=== PATIENT | male | born 1990 | race Caucasian/White ===

== ENCOUNTER 2021-09-02 07:48 | Emergency (ER) | payer SELFPAY ==
[~2021-09-02] VITALS: Ht 170 cm; Wt 75.0 kg
[2021-09-02] MEDS ORDERED: LACTATED RINGERS 1,000 ML IV ONE (08:15)
--- NOTE | 2021-09-02 08:15 | ED Syncope ---
General Stated Complaint: COVID +;SEIZURES Source of Information: Patient Exam Limitations: No Limitations History of Present Illness Date Seen by Provider: Sep 02, 2021 Time Seen by Provider: 07:56 Initial Comments Patient ER by private conveyance with his father and chief complaint that this morning while in the bathroom he felt very hot/sweaty and and passed out. He thought maybe he had a seizure. He does not have a history of epilepsy. He says this is happened before whenever he gets sick. He has been symptomatic with a cough sometimes productive of sputum a little bit of fever upset stomach since Thursday of the previous week, 12 days ago. He did at home Covid test which was positive. He does not have any significant medical history does not follow with a doctor and denies any pain. He says he struck his face on the right side of his nose and forehead and has a little bit of discomfort sometimes in his left upper abdomen. No diarrhea or constipation. Allergies and Home Medications Allergies Coded Allergies: No Known Drug Allergies (Unverified , 09/02/21) Patient Home Medication List Home Medication List Reviewed: Yes Review of Systems Constitutional: No chills, No diaphoresis EENTM: No ear discharge, No ear pain Respiratory: cough, phlegm; No short of breath, No wheezing Cardiovascular: No chest pain, No edema Gastrointestinal: No abdominal pain, No constipation, No diarrhea; loss of appetite, nausea; No vomiting Genitourinary: No decreased output, No discharge Musculoskeletal: No back pain, No joint pain Skin: No pruritus, No rash All Other Systems Reviewed Negative Unless Noted: Yes Past Evojyif-Iualcj-Jbrvxd Hx Patient Social History Tobacco Use?: No Use of E-Cig and/or Vaping dev: No Substance use?: No Alcohol Use?: No Physical Exam Vital Signs Vital Signs - First Documented 09/02/21 07:55 Temp 36.8 Pulse 87 Resp 20 B/P (MAP) 120/82 (95) Pulse Ox 95 Capillary Refill : Height, Weight, BMI Height: '" Weight: lbs. oz. kg; BMI Method: General Appearance: No Apparent Distress, WD/WN HEENT: PERRL/EOMI; No Moist Mucous Membranes; TM Abnormal (L) (Mucoid effusion without erythema or injection nor loss of anatomic landmarks.) Neck: Full Range of Motion, Normal Inspection Cardiovascular: Regular Rate, Rhythm, No Edema, Normal Peripheral Pulses Respiratory: Lungs Clear, Normal Breath Sounds, No Accessory Muscle Use, No Respiratory Distress (98 to 99% on room air, nonlabored) Gastrointestinal: Normal Bowel Sounds, No Organomegaly, Non Tender, Soft Neurologic/Psychiatric: Alert, Oriented x3 Cranial Nerves: Normal Hearing, Normal Speech, PERRL Coordination/Gait: Normal Gait Motor/Sensory: No Motor Deficit, No Sensory Deficit Skin: Normal Color, Warm/Dry Progress/Results/Core Measures Results/Orders Lab Results Laboratory Tests Test 09/02/21 08:30 Range/Units White Blood Count 6.1 4.3-11.0 10^3/uL Red Blood Count 5.05 4.30-5.52 10^6/uL Hemoglobin 15.8 13.3-17.7 g/dL Hematocrit 46 40-54 % Mean Corpuscular Volume 92 80-99 fL Mean Corpuscular Hemoglobin 31 25-34 pg Mean Corpuscular Hemoglobin Concent 34 32-36 g/dL Red Cell Distribution Width 12.1 10.0-14.5 % Platelet Count 164 130-400 10^3/uL Mean Platelet Volume 9.7 9.0-12.2 fL Immature Granulocyte % (Auto) 0 % Neutrophils (%) (Auto) 79 H 42-75 % Lymphocytes (%) (Auto) 14 12-44 % Monocytes (%) (Auto) 6 0-12 % Eosinophils (%) (Auto) 0 0-10 % Basophils (%) (Auto) 0 0-10 % Neutrophils # (Auto) 4.8 1.8-7.8 10^3/uL Lymphocytes # (Auto) 0.9 L 1.0-4.0 10^3/uL Monocytes # (Auto) 0.4 0.0-1.0 10^3/uL Eosinophils # (Auto) 0.0 0.0-0.3 10^3/uL Basophils # (Auto) 0.0 0.0-0.1 10^3/uL Immature Granulocyte # (Auto) 0.0 0.0-0.1 10^3/uL Sodium Level 134 L 135-145 MMOL/L Potassium Level 3.9 3.6-5.0 MMOL/L Chloride Level 98 98-107 MMOL/L Carbon Dioxide Level 23 21-32 MMOL/L Anion Gap 13 5-14 MMOL/L Blood Urea Nitrogen 13 7-18 MG/DL Creatinine 0.93 0.60-1.30 MG/DL Estimat Glomerular Filtration Rate 94 BUN/Creatinine Ratio 14 Glucose Level 109 H 70-105 MG/DL Calcium Level 9.0 8.5-10.1 MG/DL Corrected Calcium 8.7 8.5-10.1 MG/DL Total Bilirubin 1.0 0.1-1.0 MG/DL Aspartate Amino Transf (AST/SGOT) 35 H 5-34 U/L Alanine Aminotransferase (ALT/SGPT) 43 0-55 U/L Alkaline Phosphatase 40 40-136 U/L Troponin I < 0.028 <0.028 NG/ML C-Reactive Protein High Sensitivity 0.97 H 0.00-0.50 MG/DL Total Protein 7.7 6.4-8.2 GM/DL Albumin 4.4 3.2-4.5 GM/DL My Orders Orders - VENKAT,ANTIONETTE J Orthostatic Vital Signs (Adult (09/02/21 08:07) Cbc With Automated Diff (09/02/21 08:07) Comprehensive Metabolic Panel (09/02/21 08:07) Hs C Reactive Protein (09/02/21 08:07) Chest 1 View, Ap/Pa Only (09/02/21 08:07) Continuous Ekg Monitoring (09/02/21 08:07) Ekg Tracing (09/02/21 08:07) Troponin I Eleazar (09/02/21 08:07) Ed Iv/Invasive Line Start (09/02/21 08:07) Lactated Ringers (Lr 1000 Ml Iv Solution (09/02/21 08:15) Covid-19 External Lab Results (09/02/21 08:17) Isolation Central Supply Req (09/02/21 08:17) Ondansetron Injection (Zofran Injectio (09/02/21 08:45) Ondansetron Injection (Zofran Injectio (09/02/21 08:41) Ondansetron Injection (Zofran Injectio (09/02/21 10:15) Prochlorperazine Tablet (Compazine Table (09/02/21 10:17) Lidocaine 2% Viscous 15 Ml (Xylocaine Vi (09/02/21 10:30) Famotidine Tablet (Pepcid Tablet) (09/02/21 10:17) Antacid Suspension (Mylanta Suspension (09/02/21 10:30) Diphenhydramine Tablet (Benadryl Tablet) (09/02/21 10:30) Ketorolac Injection (Toradol Injection) (09/02/21 11:30) Medications Given in ED Current Medications Medications Dose Ordered Sig/Ely Route Start Time Stop Time Status Last Admin Dose Admin Al Hydrox/Mg Hydrox/Simethicone 30 ml ONCE ONCE PO 09/02/21 10:30 09/02/21 10:31 DC 09/02/21 10:36 30 ML Diphenhydramine HCl 25 mg ONCE ONCE PO 09/02/21 10:30 09/02/21 10:31 DC 09/02/21 10:42 25 MG Lactated Ringer's 1,000 ml @ 0 mls/hr Q0M ONCE IV 09/02/21 08:15 09/02/21 08:16 DC 09/02/21 08:19 1,000 MLS/HR Lidocaine HCl 15 ml ONCE ONCE PO 09/02/21 10:30 09/02/21 10:31 DC 09/02/21 10:36 15 ML Ondansetron HCl 4 mg ONCE ONCE IVP 09/02/21 08:45 09/02/21 08:46 DC 09/02/21 08:45 4 MG Ondansetron HCl 8 mg ONCE ONCE IVP 09/02/21 10:15 09/02/21 10:16 DC 09/02/21 10:14 8 MG Vital Signs/I&O 09/02/21 07:55 Temp 36.8 Pulse 87 Resp 20 B/P (MAP) 120/82 (95) Pulse Ox 95 Progress Progress Note #1: Time: 08:13 Progress Note The patient describes a story sounds more like vasovagal syncope especially with a history. Orthostatics were not positive however he may have drank some water since then. His mouth does appear to be dry so we will check some labs, EKG and give him a liter of LR and recheck him after that. Vital signs are aseptic. He did inquire about monoclonal antibodies however he is well outside the window for benefit. Progress Note #2: Time: 10:16 Progress Note Still having belching and epigastric burning. Zofran and GI cocktail. Progress Note #3: Time: 11:17 Progress Note Patient states he is no longer having the dizziness, lightheadedness or feeling like he is in a pass out. He is able to walk around the room without issue. He still having the pain in his epigastric region. GI cocktail did not help much. Suspect that even though he is not exhibiting external markings he may have contusion of the abdominal wall so Toradol was offered. He is ready to go home drink fluids and follow-up with a PCP. He does not have a primary care provider yet so we will provide him with a list Initial ECG Impression Date: Sep 02, 2021 Initial ECG Impression Time: 07:58 Initial ECG Rate: 81 Initial ECG Rhythm: Normal Sinus Initial ECG Intervals: Normal Initial ECG Impression: Normal, Nonspecific Changes Initial ECG Comparisson: No Previous ECG Available Comment Normal sinus rhythm with borderline left axis deviation. No evidence of ST deviation. Diagnostic Imaging Diagonstic Imaging: Xray Plain Films/CT/US/NM/MRI: chest Comments [facility], [place] NAME: JASMINE LOVELACE [facility] REC#: [id number] PT STATUS: REG ER : 1990 PHYSICIAN: ANTIONETTE ROBLEDO MD ADMIT DATE: 09/02/21/ER Draft Date of Exam:09/02/21 CHEST 1 VIEW, AP/PA ONLY INDICATION: Seizures. Patient is Covid-19 positive. TIME OF EXAM: 9:04 AM No prior studies are available for comparison. FINDINGS: The heart size is normal. The pulmonary vascularity is unremarkable. The lungs are clear. No infiltrate, effusion or pneumothorax is detected. IMPRESSION: No acute cardiopulmonary process is detected. Dictated on workstation # [id number] Dict: 09/02/21 09 Trans: 09/02/21904 [id number] Interpreted by: KHANH PAINTER MD Electronically signed by: Reviewed: Reviewed by Me Departure Impression Primary Impression: Syncope and collapse Additional Impressions: Dehydration Abdominal wall contusion Qualified Codes: S30.1XXA - Contusion of abdominal wall, initial encounter Disposition: 01 HOME, SELF-CARE Condition: Stable Departure-Patient Inst. Decision time for Depature: 11:18 Patient Instructions: Contusion (DC), LOCAL PHYSICIAN LIST, Syncope (Fainting) (DC) Add. Discharge Instructions: Drink lots of fluids especially over the next couple days to prevent passing out again. I would suggest following up in 1 to 2 weeks with a primary care provider and we have added a list of local doctors you can follow-up with. Return to the ER for continued symptoms. Tylenol and ibuprofen as necessary for pain in your stomach. Work/School Note: Work Release Form Date Seen in the Emergency Department: Sep 02, 2021 Return to Work: Sep 03, 2021 Restrictions: No Restrictions ANTIONETTE ROBLEDO Sep 02, 2021 08:15
[2021-09-02 08:41] LABS: BASOPHILS % (AUTO) 0 % (0-10); EOSINOPHILS % (AUTO) 0 % (0-10); HEMATOCRIT 46 % (40-54); HEMOGLOBIN 15.8 g/dL (13.3-17.7); LYMPHOCYTES # (AUTO) 0.9 10^3/uL (1.0-4.0); LYMPHOCYTES % (AUTO) 14 % (12-44); MEAN CORPUSCULAR HEMOGLOBIN 31 pg (25-34); MEAN CORPUSCULAR HGB CONC 34 g/dL (32-36); MEAN CORPUSCULAR VOLUME 92 fL (80-99); MEAN PLATELET VOLUME 9.7 fL (9.0-12.2); MONOCYTES # (AUTO) 0.4 10^3/uL (0.0-1.0); MONOCYTES % (AUTO) 6 % (0-12); NEUTROPHILS # (AUTO) 4.8 10^3/uL (1.8-7.8); NEUTROPHILS % (AUTO) 79 % (42-75); PLATELET COUNT 164 10^3/uL (130-400); WHITE BLOOD COUNT 6.1 10^3/uL (4.3-11.0)
[2021-09-02] MEDS ORDERED: ONDANSETRON 4 MG/2 ML (SDV) Z0FRAN ONE (08:41)
[2021-09-02] MEDS ORDERED: ONDANSETRON 4 MG/2 ML (SDV) Z0FRAN IVP ONE ×2 (08:45→10:15)
[2021-09-02 08:54] LABS: ALBUMIN 4.4 GM/DL (3.2-4.5); CHLORIDE 98 MMOL/L (98-107); POTASSIUM 3.9 MMOL/L (3.6-5.0); SODIUM 134 MMOL/L (135-145)
[2021-09-02 08:56] LABS: GLUCOSE 109 MG/DL (70-105)
[2021-09-02 08:57] LABS: TOTAL PROTEIN 7.7 GM/DL (6.4-8.2)
[2021-09-02 08:58] LABS: CARBON DIOXIDE 23 MMOL/L (21-32)
[2021-09-02 09:00] LABS: ALKALINE PHOSPHATASE 40 U/L (40-136); CREATININE SERUM 0.93 MG/DL (0.60-1.30); GFR ESTIMATED 94
[2021-09-02 09:01] LABS: BUN/CREATININE RATIO 14
[2021-09-02 09:03] LABS: ALANINE AMINOTRANSFERASE 43 U/L (0-55)
--- NOTE | 2021-09-02 09:05 | Diagnostic Imaging Report ---
INDICATION: Seizures. Patient is Covid-19 positive. TIME OF EXAM: 9:04 AM No prior studies are available for comparison. FINDINGS: The heart size is normal. The pulmonary vascularity is unremarkable. The lungs are clear. No infiltrate, effusion or pneumothorax is detected. IMPRESSION: No acute cardiopulmonary process is detected. Dictated by: Dictated on workstation # [id number]
[2021-09-02] MEDS ORDERED: PROCHLORPERAZINE 10 MG TAB (COMPAZINE) PO STA (10:17)
[2021-09-02] MEDS ORDERED: FAMOTIDINE 20 MG (PEPCID) TABLET PO STA (10:17)
[2021-09-02] MEDS ORDERED: diphenhydrAMINE 25 MG TAB (BENADRYL) PO ONE (10:30)
[2021-09-02] MEDS ORDERED: ANTACID SUSP 30 ML UDC (MYLANTA) PO ONE (10:30)
[2021-09-02] MEDS ORDERED: LIDOCAINE 2% VISCOUS 15 ML UDC PO ONE (10:30)
[2021-09-02 11:28] VITALS: BP 116/70
[2021-09-02] MEDS ORDERED: KETOROLAC 30 MG/ML VIAL IVP ONE (11:30)
== END 2021-09-02 11:28 | disposition home or self-care (01) ==
LOC: EDUNIT# 07:48 → ER 07:50
DX: S30.1XXA Contusion of abdominal wall, initial encounter (principal); R55 Syncope and collapse; E86.0 Dehydration; W22.8XXA Striking against or struck by other objects, initial encounter
CPT/HCPCS: 36415; 71045; 80053; 84484; 85025; 86141; 93005